=== PATIENT | female | born 1950 | race Caucasian/White ===

== ENCOUNTER 2017-10-26 10:45 | Observation (INO) ==
--- NOTE | 2017-10-26 11:05 | Emergency Department Note ---
Disposition Clinical Impression: Chest pain Qualifiers: Chest pain type: unspecified Qualified Code(s): R07.9 - Chest pain, unspecified Dyspnea Qualifiers: Dyspnea type: unspecified Qualified Code(s): R06.00 - Dyspnea, unspecified Disposition: Admitted As Inpatient Condition: Good Referrals: Adrienne Barnes SCALEHOUSE ATTENDANT [Primary Care Provider] - Forms: ED Satisfaction Letter Time of Disposition: 13:57 SOB HPI - General Chief Complaint: ED Shortness of Breath/Dyspnea Stated Complaint: LIVE Time Seen by Provider: 10/26/17 10:57 Source: patient, family Limitations: no limitations Nursing Notes Reviewed: Yes Vital Signs Reviewed: Yes - History of Present Illness Patient notes exertional dyspnea over the past 1 month. She states she cannot perform even basic ADLs without becoming dyspneic and having heavy substernal chest discomfort. The pain in her chest lasts approximately 15 minutes with spontaneous resolution with resting. She denies cough. She was referred by her primary care provider to see a customs collector who scheduled her for an echocardiogram and non-exercise stress test 3 days from now Pt Subjective Complaint: shortness of breath Onset (ago): week(s) Context: occurred during exertion Severity: severe Consistency/Duration: gradually worsening Improves with: rest Worsens with: exertion Associated symptoms: Reports: chest pain Treatment prior to arrival: none Cough present: No - Related Data Home oxygen amount: none Allergies Allergy/AdvReac Type Severity Reaction Status Date / Time Penicillins [PCN] Allergy See Verified 10/26/17 10:55 Comments All systems ED: reviewed and negative except as stated. Constitutional: Reports: as per HPI Eyes: Reports: as per HPI ENT ED: Reports: as per HPI Cardiovascular: Reports: chest pain Respiratory: Reports: dyspnea Gastrointestinal: Reports: as per HPI Genitourinary: Reports: as per HPI Musculoskeletal: Reports: as per HPI Integumentary: Reports: as per HPI Neurological: Reports: other (Feels dizzy, lightheaded) Psychiatric: Reports: anxiety Endocrine: Reports: as per HPI Hematological/Lymphatic: Reports: as per HPI Allergic/Immunologic: Reports: as per HPI Past Medical History - Past Medical History Source: patient Medical history: Reports: GERD, hyperlipidemia, other (Hypothyroidism) Psychiatric history: Reports: no psych history COMPLIANCE AUDITOR history: Reports: non-contributory - Social History Smoking Status: Never smoker Smokeless Tobacco Status: No Alcohol use: Reports: none Drug use: Reports: none Physical Exam Poor historian - General Limitations: no limitations General appearance: alert, in no apparent distress, anxious - Head Head exam: atraumatic - Eye Eye exam: Present: normal appearance - ENT ENT exam: normal exam - Neck Neck exam: Present: normal inspection, full ROM - Chest Chest inspection: Present: normal inspection, symmetric chest wall rise - Respiratory Respiratory exam: Present: normal lung sounds bilaterally, other (Tachypneic without accessory muscle use) - Cardiovascular Cardiovascular exam: Present: regular rate, normal heart sounds - Extremities Exam Extremities exam: Present: pedal edema - Neurological Exam Neurological exam: Present: alert, oriented X3, CN II-XII intact - Psychiatric Psychiatric exam: Present: anxious - Skin Skin exam: Present: warm, dry, intact Course Course Narrative: Patient presents with exertional dyspnea and chest discomfort over the past 1 month. She has seen cardiology and has been referred for outpatient studies. Workup today will include a chest x-ray, EKG, labs. She will be reassessed - Reevaluation(s) Reevaluation #1: D-dimer elevated. CT chest ordered Reevaluation #2: Patient has not reported any cough. I do not think her symptoms are due to pneumonia. We will request admission to the medicine service for further evaluation and management Vital Signs Temperature 97.9 F 10/26/17 10:49 Pulse Rate 102 10/26/17 10:49 Respiratory Rate 24 10/26/17 10:49 Blood Pressure 138/99 10/26/17 10:49 O2 Sat by Pulse Oximetry 98 10/26/17 10:49 Temperature 97.9 F 10/26/17 10:49 Pulse Rate 102 10/26/17 10:49 Respiratory Rate 24 10/26/17 10:49 Blood Pressure 138/99 10/26/17 10:49 O2 Sat by Pulse Oximetry 98 10/26/17 10:49 Oxygen Delivery Oxygen Delivery Room Air Shortness of Breath/Dyspnea - Lab Data Lab results reviewed: Yes I reviewed the patient's lab results. Result diagrams: 10/26/17 11:31 10/26/17 11:31 Lab Results 10/26/17 10/26/17 10/26/17 Range/Units 11:31 11:31 11:31 WBC 12.0 H (4.3-11.1) K/mcL RBC 4.94 (3.82-4.97) M/mcL Hgb 14.8 (11.5-15.4) g/dL Hct 45.4 H (35.3-44.9) % MCV 91.9 (83.0-100.0) fL MCH 30.0 (28.0-33.3) pg MCHC 32.6 (31.6-35.5) g/dL RDW 12.8 (11.5-14.5) % Plt Count 383 (140-400) K/mcL MPV 10.9 (9.4-12.4) fL Immature Gran % 0.3 (0-4) % Seg Neutrophils % 71.2 % Lymphocytes % 20.8 % Monocytes % 6.6 % Eosinophils % 0.3 % Basophils % 0.8 % Neutrophils # 8.5 (1.6-8.9) K/mcL Lymphocytes # 2.5 (0.6-4.6) K/mcL Monocytes # 0.8 (0.0-1.3) K/mcL Eosinophils # 0.0 (0.0-0.6) K/mcL Basophils # 0.1 (0.0-0.2) K/mcL PT 11.3 (9.4-12.1) Seconds INR 1.1 APTT 31.4 (26.0-36.0) Seconds D-Dimer 767 H (0-500) ng/mLFEU Sodium 139 (136-145) mEq/L Potassium 3.8 (3.5-5.1) mEq/L Chloride 106 (98-107) mEq/L Carbon Dioxide 24 (23-29) mEq/L BUN 12 (8-23) mg/dL Creatinine 0.80 (0.60-1.20) mg/dL Est GFR ( Amer) > 60 (> 60) Est GFR (Non-Af Amer) > 60 (> 60) BUN/Creatinine Ratio 15 (6-26) Glucose 103 (70-105) mg/dL Calculated Osmolality 288 (280-300) Calcium 9.5 (8.6-10.3) mg/dL Total Bilirubin 0.5 (0.3-1.0) mg/dL Direct Bilirubin 0.1 (0.0-0.2) mg/dL Indirect Bilirubin 0.4 (0.0-1.2) mg/dL AST 17 (13-39) Units/L ALT 16 (7-52) Units/L Alkaline Phosphatase 102 (34-104) Units/L Troponin I < 0.03 (< 0.04) ng/mL B-Natriuretic Peptide (Less than 100) pg/mL Serum Total Protein 7.6 (6.4-8.9) g/dL Albumin 4.2 (3.5-5.7) g/dL Globulin 3.4 (2.4-3.5) g/dL Albumin/Globulin Ratio 1.2 (1.1-2.2) 10/26/17 Range/Units 11:31 WBC (4.3-11.1) K/mcL RBC (3.82-4.97) M/mcL Hgb (11.5-15.4) g/dL Hct (35.3-44.9) % MCV (83.0-100.0) fL MCH (28.0-33.3) pg MCHC (31.6-35.5) g/dL RDW (11.5-14.5) % Plt Count (140-400) K/mcL MPV (9.4-12.4) fL Immature Gran % (0-4) % Seg Neutrophils % % Lymphocytes % % Monocytes % % Eosinophils % % Basophils % % Neutrophils # (1.6-8.9) K/mcL Lymphocytes # (0.6-4.6) K/mcL Monocytes # (0.0-1.3) K/mcL Eosinophils # (0.0-0.6) K/mcL Basophils # (0.0-0.2) K/mcL PT (9.4-12.1) Seconds INR APTT (26.0-36.0) Seconds D-Dimer (0-500) ng/mLFEU Sodium (136-145) mEq/L Potassium (3.5-5.1) mEq/L Chloride (98-107) mEq/L Carbon Dioxide (23-29) mEq/L BUN (8-23) mg/dL Creatinine (0.60-1.20) mg/dL Est GFR ( Amer) (> 60) Est GFR (Non-Af Amer) (> 60) BUN/Creatinine Ratio (6-26) Glucose (70-105) mg/dL Calculated Osmolality (280-300) Calcium (8.6-10.3) mg/dL Total Bilirubin (0.3-1.0) mg/dL Direct Bilirubin (0.0-0.2) mg/dL Indirect Bilirubin (0.0-1.2) mg/dL AST (13-39) Units/L ALT (7-52) Units/L Alkaline Phosphatase (34-104) Units/L Troponin I (< 0.04) ng/mL B-Natriuretic Peptide 44 (Less than 100) pg/mL Serum Total Protein (6.4-8.9) g/dL Albumin (3.5-5.7) g/dL Globulin (2.4-3.5) g/dL Albumin/Globulin Ratio (1.1-2.2) - Radiology Data Radiology results reviewed: Yes I reviewed the patient's radiology results. - EKG Data EKG attestation: Yes I reviewed and interpreted this EKG. EKG results narrative: Normal sinus rhythm rate 95 BPM OH 181 QRS 83 QT/QTC 339/392
[2017-10-26 11:42] LABS: Basophils # 0.1 K/mcL (0.0-0.2); Basophils % 0.8 %; Eosinophils % 0.3 %; Hematocrit 45.4 % (35.3-44.9); Hemoglobin 14.8 g/dL (11.5-15.4); Immature Granulocytes % 0.3 % (0-4); Lymphocytes # 2.5 K/mcL (0.6-4.6); Lymphocytes % 20.8 %; Mean Corpuscular HGB Conc 32.6 g/dL (31.6-35.5); Mean Corpuscular Volume 91.9 fL (83.0-100.0); Mean Platelet Volume 10.9 fL (9.4-12.4); Monocytes # 0.8 K/mcL (0.0-1.3); Monocytes % 6.6 %; Neutrophils # 8.5 K/mcL (1.6-8.9); Platelet Count 383 K/mcL (140-400); Red Blood Count 4.94 M/mcL (3.82-4.97); Red Cell Distribution Width 12.8 % (11.5-14.5); Segmented Neutrophils % 71.2 %
[2017-10-26 11:49] LABS: INR 1.1; Prothrombin Time 11.3 Seconds (9.4-12.1)
[2017-10-26 11:52] LABS: Activated Partial Thrombo Time 31.4 Seconds (26.0-36.0)
[2017-10-26 12:08] LABS: Alanine Aminotransferase 16 Units/L (7-52); Albumin 4.2 g/dL (3.5-5.7); Albumin/Globulin Ratio 1.2 (1.1-2.2); Alkaline Phosphatase 102 Units/L (34-104); Aspartate Amino Transferase 17 Units/L (13-39); BUN/Creatinine Ratio 15 (6-26); Bilirubin,Direct 0.1 mg/dL (0.0-0.2); Bilirubin,Indirect 0.4 mg/dL (0.0-1.2); Bilirubin,Total 0.5 mg/dL (0.3-1.0); Blood Urea Nitrogen 12 mg/dL (8-23); Calcium 9.5 mg/dL (8.6-10.3); Carbon Dioxide 24 mEq/L (23-29); Chloride 106 mEq/L (98-107); Globulin 3.4 g/dL (2.4-3.5); Glucose 103 mg/dL (70-105); Osmolality,Calculated 288 (280-300); Potassium 3.8 mEq/L (3.5-5.1); Sodium 139 mEq/L (136-145); Total Protein 7.6 g/dL (6.4-8.9); Troponin I < 0.03 ng/mL (< 0.04); eGFR For African Americans > 60 (> 60); eGFR For Non-African Americans > 60 (> 60)
[2017-10-26] MEDS ORDERED: Naloxone 0.4 MG/ML INJ IVP PRN (14:39)
--- NOTE | 2017-10-26 14:44 | Internal Med History&Physical ---
<Johan Myers - Last Filed: 10/26/17 14:59> Date of Encounter: 10/26/17 Time of Encounter: 14:42 Assessment and Plan (1) Chest pain Current visit: Yes Status: Acute ASSESSMENT: - Chest pain, etiology unclear. No prior cardiac history, but d/t 1 month H/O dyspnea has been following with a dba manager. She was initially scheduled to have a TTE, and a pharmacological stress this Wednesday. She is reporting midsternal chest discomfort/pain and dyspnea with exertion. She is unable to classify or describe the type or intensity of chest pain/discomfort. She reports that she currently has no active chest pain/discomfort at this time. She remains hemodynamically stable CAD Risk factors include Obesity, HDL, Sedentary lifestyle PLAN: - cardiac enzymes x 2 q 6 hr - EKG shows NSR rate of [address] elevations or depression - ASA 81 mg now - CBCD, BMP in AM - Fasting lipids - Heparin 5000 U SQ BID - 2D Echo - Pharmacological stress test in the am Qualifiers: Chest pain type: unspecified Qualified Code(s): R07.9 - Chest pain, unspecified (2) Dyspnea Current visit: Yes Status: Acute New dyspnea x1 month. Etiology unclear. CT show a possible PNA but it appears to be more atelectasis than PNA. She is denying any systemic s/sx including cough, fevers, chills, or aches. She is not requiring O2 for respiratory support and is in no respiratory distress with rest. -Respiratory support per NC; titrate to maintain Spo2 >92% -Continuous tele, and Spo2 monitoring Qualifiers: Dyspnea type: unspecified Qualified Code(s): R06.00 - Dyspnea, unspecified (3) HLD (hyperlipidemia) Current visit: Yes Status: Acute Continue Crestor Qualifiers: Hyperlipidemia type: unspecified Qualified Code(s): E78.5 - Hyperlipidemia , unspecified (4) DVT prophylaxis Current visit: Yes Status: Acute Heparin 5000 units SC BID Internal Medicine - H&P: HPI Chief complaint: dyspnea, exertional chest pain Admitted From: Home Plans for Post Hospital Care: Home History of present illness: Ms. Das is a 67 year old female with a PMH of obesity, GERD and hyperlipidemia. She presents to [facility] today with a one-month history of dyspnea and chest pain/discomfort exacerbated by exertion. She reports that she is unable to perform even basic ADLs due to dyspnea and chest heaviness. She describes the chest pain/discomfort as substernal however, she is unable to classify her describe the intensity or type of pain. She reports that the pain lasts approximately 15 minutes and spontaneously resolves with rest. She denies any systemic symptoms such as cough, fever, chills or generalized aches/ pains. She has been following with cardiology due to continued dyspnea. Past Med Surg Social Fam HX - Past Medical History Medical history: GERD, hyperlipidemia, other (Hypothyroidism) Psychiatric history: no psych history - Social History Smoking Status: Never smoker Smokeless Tobacco Status: No Alcohol use: none Drug use: none - Additional Family History Additional family history: Noncontributory Internal Medicine - H&P: Meds Clopidogrel [Plavix] 75 mg PO DAILY 10/26/17 [History] Levothyroxine Sodium [Levoxyl] 88 mcg PO DAILY 10/26/17 [History] Omeprazole [PriLOSEC] 20 mg PO BIDAC 10/26/17 [History] Rosuvastatin Calcium [Crestor] 5 mg PO DAILY 10/26/17 [History] 3 Allergy/AdvReac Type Severity Reaction Status Date / Time Penicillins [PCN] Allergy See Verified 10/26/17 10:55 Comments All Systems PM: A 10-system review of systems was performed and is negative for pertinent findings except as documented above in the HPI. Review of systems: REVIEW OF SYSTEMS GENERAL: Negative for any nausea, vomiting, fevers, chills, or weight loss. NEUROLOGIC: Negative for any blurry vision, blind spots, double vision, facial asymmetry, dysphagia, dysarthria, hemiparesis, hemisensory deficits, vertigo, ataxia. HEENT: Negative for any head trauma, neck trauma, neck stiffness, photophobia, phonophobia, sinusitis, rhinitis. CARDIAC: Negative for any, paroxysmal nocturnal dyspnea, peripheral edema. Positive for chest pain with exertion and dyspnea on exertion PULMONARY: Negative for any wheezing, COPD, or TB exposure. Positive for dyspnea on exertion GASTROINTESTINAL: Negative for any abdominal pain, nausea, vomiting, bright red blood per rectum, melena. GENITOURINARY: Negative for any dysuria, hematuria, incontinence. INTEGUMENTARY: Negative for any rashes, cuts, insect bites. RHEUMATOLOGIC: Negative for any joint pains, photosensitive rashes, history of vasculitis or kidney problems. HEMATOLOGIC: Negative for any abnormal bruising, frequent infections or bleeding. - Constitutional Vitals: Temp Pulse Resp BP Pulse Ox 97.9 F 102 24 138/99 98 10/26/17 10:49 10/26/17 10:49 10/26/17 10:49 10/26/17 10:49 10/26/17 10:49 General appearance: Present: cooperative, A&O X 3, no acute distress, answers questions appropriately - Head Head exam: Present: atraumatic, normocephalic - Eye Pupils: Present: PERRL - Neck Neck exam general surgery: Present: supple, trachea midline. Absent: lymphadenopathy - Respiratory Respiratory exam: Present: decreased breath sounds, CTAB. Absent: accessory muscle use, rales, rhonchi, wheezes - Cardiovascular Cardiovascular exam: Present: RRR, +S1, +S2. Absent: diastolic murmur, gallop, rubs, systolic murmur - GI/Abdominal GI/Abdominal exam: Present: normal bowel sounds, soft, no peritoneal signs. Absent: distended, tenderness - Extremities Exam Extremities exam: Present: warm, radial pulses palpable and symmetrical. Absent : calf tenderness, cyanotic, pedal edema - Neurological Exam Neurological exam: Present: oriented X3. Absent: facial droop, speech deficit - Skin Skin exam: Present: dry, intact Internal Med - H&P Results - Labs CBC & Chem 7: 10/26/17 11:31 10/26/17 11:31 - EKG Data -: EKG Interpreted by Myself EKG shows normal: sinus rhythm - EKG Data Prior EKG available for review: no Interpretation IM: normal EKG EKG comments: Normal sinus rhythm with a rate of 91. No ST elevation or depression 10/26/17 14:44 - Impressions Impressions Chest X-Ray 10/26/17 11:02 IMPRESSION: No active cardiopulmonary disease D/ / Job Damon MD / Job Damon MD Interpreting Provider: Job Damon MD Chest CTA 10/26/17 12:17 IMPRESSION: 1. No evidence of pulmonary embolism 2. Small focus of airspace disease in the left lower lobe may represent a focus of pneumonia 3. Moderate hiatal hernia D/ / Job Damon MD / Job Damon MD Interpreting Provider: Job Damon MD <Nguyễn Menezes - Last Filed: 10/26/17 15:51> Date of Encounter: 10/26/17 Internal Medicine - H&P: HPI History of present illness: Ms. Das is a 67 year old female All Systems PM: A 10-system review of systems was performed and is negative for pertinent findings except as documented above in the HPI. - Constitutional Vitals: Temp Pulse Resp BP Pulse Ox 97.9 F 102 18 162/82 98 10/26/17 10:49 10/26/17 10:49 10/26/17 14:53 10/26/17 14:53 10/26/17 10:49 Internal Med - H&P Results - Labs CBC & Chem 7: 10/26/17 11:31 10/26/17 11:31 - Attending Attestation I have personally performed a face to face evaluation on this patient. I have reviewed and agree with the care plan by HYDRAULIC ENGINEER Johan Myers. History and Exam by me shows: Ms. Das is a 67 year old female with a PMH of obesity, GERD and hyperlipidemia. She presents to [facility] today with a one-month history of dyspnea and chest pain/discomfort exacerbated by exertion. Pt denied any cold / cough. No fever / chills. Gen: A, A, O x 3 Chest : Diminished BS b/l Heart : S1 S2 + RRR No murmurs Abd: Soft, NT A/p 1. Acute CP She does have typical stable angina / CP with exertion So far negative work up check serial trop Stress test in AM 2 D Echo in AM
[2017-10-26] MEDS: Aspirin 81 MG TAB.CHEW PO SCH (15:55)
[2017-10-26] MEDS: *HR* Heparin 5,000 UNIT/ML VIAL SQ SCH (18:15)
[2017-10-27 05:01] LABS: BUN/Creatinine Ratio 20 (6-26); Blood Urea Nitrogen 17 mg/dL (8-23); Calcium 9.1 mg/dL (8.6-10.3); Carbon Dioxide 18 mEq/L (23-29); Chloride 108 mEq/L (98-107); Glucose 95 mg/dL (70-105); Osmolality,Calculated 289 (280-300); Potassium 4.4 mEq/L (3.5-5.1); Sodium 139 mEq/L (136-145); eGFR For African Americans > 60 (> 60); eGFR For Non-African Americans > 60 (> 60)
[2017-10-27] MEDS: *HR* Heparin 5,000 UNIT/ML VIAL SQ SCH ×2 (05:49→17:55)
[2017-10-27] MEDS ORDERED: Regadenoson 0.4 MG/5 ML SYRINGE IVP ONE (06:04)
[2017-10-27 06:35] LABS: Hematocrit 41.6 % (35.3-44.9); Hemoglobin 13.8 g/dL (11.5-15.4); Mean Corpuscular HGB Conc 33.2 g/dL (31.6-35.5); Mean Platelet Volume 11.2 fL (9.4-12.4); Platelet Count 341 K/mcL (140-400); Red Cell Distribution Width 13.2 % (11.5-14.5)
[2017-10-27 06:55] LABS: Mean Corpuscular Volume 90.4 fL (83.0-100.0)
[2017-10-27] MEDS: Aspirin 81 MG TAB.CHEW PO SCH (09:20)
--- NOTE | 2017-10-27 15:49 | Internal Med Progress Note ---
Date of Encounter: 10/27/17 Time of Encounter: 14:00 - Assessment and plan (1) Chest pain Current Visit: Yes Status: Acute Assessment and plan: presented with CP and SOB that is worse with exertion. Chest CTA with evidence of atelectasis, no pulmonary embolism. Serial troponins negative, EKG without acute ST changes. TTE with EF 60%, mild diastolic dysfunction and no wall motion abnormalities. Stress test pending Qualifiers: Chest pain type: unspecified Qualified Code(s): R07.9 - Chest pain, unspecified (2) GERD (gastroesophageal reflux disease) Current Visit: Yes Status: Acute Assessment and plan: per hx. Cont PPI Qualifiers: Esophagitis presence: without esophagitis Qualified Code(s): K21.9 - Gastro -esophageal reflux disease without esophagitis (3) HLD (hyperlipidemia) Current Visit: Yes Status: Acute Assessment and plan: per hx. Cont statin Qualifiers: Hyperlipidemia type: unspecified Qualified Code(s): E78.5 - Hyperlipidemia , unspecified (4) Morbid obesity Current Visit: Yes Status: Acute Assessment and plan: BMI 45. Lifestyle modifications encouraged (5) DVT prophylaxis Current Visit: Yes Status: Acute Assessment and plan: heparin - Subjective Interval history: Seen and examined at bedside, patient is new to me. Information obtained from chart review and patient report. Says she feels better at time of my exam. No chest pain or shortness of breath. She reports chest pain or shortness of breath with exertion. Chest pain was reproducible on exam. - Constitutional Vitals: Temp Pulse Resp BP Pulse Ox 98.0 F 84 16 135/82 96 10/27/17 15:37 10/27/17 15:37 10/27/17 15:37 10/27/17 15:37 10/27/17 15:37 General appearance: Present: cooperative, A&O X 3, morbidly obese, no acute distress, answers questions appropriately - Head Head exam: Present: atraumatic, normocephalic - Eye Eye exam: Present: PERRL, conjuntiva pink, sclera anicteric Pupils: Present: PERRL - Neck Neck exam general surgery: Present: supple, trachea midline. Absent: lymphadenopathy - Respiratory Respiratory exam: Present: chest wall tenderness, CTAB. Absent: accessory muscle use, rales, rhonchi, wheezes - Cardiovascular Cardiovascular exam: Present: RRR, +S1, +S2. Absent: diastolic murmur, gallop, rubs, systolic murmur - GI/Abdominal GI/Abdominal exam: Present: normal bowel sounds, soft, no peritoneal signs. Absent: distended, tenderness - Extremities Exam Extremities exam: Present: warm, radial pulses palpable and symmetrical. Absent : calf tenderness, cyanotic, pedal edema - Neurological Exam Neurological exam: Present: CN II-XII intact, oriented X3, no focal deficits. Absent: pronater drift, facial droop, speech deficit - Skin Skin exam: Present: dry, intact Internal Medicine: Result - Labs CBC & Chem 7: 10/27/17 06:17 10/27/17 03:39 Labs: Short CBC 10/27/17 Range/Units 06:17 WBC 10.4 (4.3-11.1) K/mcL Hgb 13.8 (11.5-15.4) g/dL Hct 41.6 (35.3-44.9) % Plt Count 341 (140-400) K/mcL BMP 10/27/17 03:39 Sodium 139 Potassium 4.4 Chloride 108 H Carbon Dioxide 18 L BUN 17 Creatinine 0.85 Glucose 95 Calcium 9.1 Cardiac Enzymes 10/26/17 10/26/17 Range/Units 17:15 23:26 Troponin I < 0.03 < 0.03 (< 0.04) ng/mL - ABG Interpretation ABG results: PT/INR, D-dimer PT 11.3 Seconds (9.4-12.1) 10/26/17 11:31 D-Dimer 767 ng/mLFEU (0-500) H 10/26/17 11:31 - Impressions Impressions Echocardiogram 10/27/17 14:38 Impressions: LVEF 60-65%. Normal LV chamber size, wall thickness and function. Mild left ventricular diastolic dysfunction. Normal right ventricular structure and function. Mild pulmonary hypertension. No significant valvular dysfunction. Left Ventricular Wall Motion: Rest Echo Findings All wall segments showed normal motion. Findings: Study Quality * Technically adequate exam. ECG Findings * Normal sinus rhythm. Left Ventricle * LVEF 60-65%. * Normal LV chamber size, wall thickness and function. * Mild left ventricular diastolic dysfunction. Right Ventricle * Normal right ventricular structure and function. Left Atrium * Mildly dilated left atrium. Right Atrium * Normal right atrial size. Interatrial Septum * Interatrial septum not well evaluated. Aortic Valve * Aortic valve not well visualized. * No aortic regurgitation. * No aortic stenosis. Mitral Valve * Normal mitral valve structure and function. * No mitral stenosis. * Trace mitral regurgitation. Tricuspid Valve * Normal tricuspid valve structure and function. * Trace tricuspid regurgitation. * Mild pulmonary hypertension. Pulmonic Valve * Normal pulmonic valve structure and function. * No pulmonic regurgitation. Aorta * Normally sized aortic root. Pericardium * The pericardium appears normal. IVC * Normal IVC dimensions and inspiratory collapse. Pulmonary Artery * Normal visualized portions of the main pulmonary artery. Consult Discharge Plan - Plan Referrals: Adrienne Barnes, GEOGRAPHIC ANALYST [Primary Care Provider] -
--- NOTE | 2017-10-27 16:30 | Electrocardiograph Report ---
[place] [id number] Test Date: 2017-10-26 Pat Name: Jackie Das Department: 104 Room: 3B45 Gender: F Vehicle Sales Professional: SUNNY : 1950 Requested By: Haris Haley Order Number: [id number] Reading MD: Elliot Hood MD Measurements Intervals [place] Rate: 95 P: 17 [place]: 181 QRS: 12 QRSD: 83 T: 42 QT: 339 QTc: 392 Interpretive Statements SINUS RHYTHM Electronically Signed On 10-27-2017 16:28:38 EST by Elliot Hood MD
[2017-10-28] MEDS: *HR* Heparin 5,000 UNIT/ML VIAL SQ SCH ×2 (06:00→16:49)
[2017-10-28] MEDS: Aspirin 81 MG TAB.CHEW PO SCH (08:24)
--- NOTE | 2017-10-28 15:22 | Internal Med Progress Note ---
Date of Encounter: 10/28/17 Time of Encounter: 15:20 - Assessment and plan (1) Chest pain Current Visit: Yes Status: Acute Assessment and plan: presented with CP and SOB that is worse with exertion. Chest CTA with evidence of atelectasis, no pulmonary embolism. Serial troponins negative, EKG without acute ST changes. TTE with EF 60%, mild diastolic dysfunction and no wall motion abnormalities. Stress test with large size moderate to severe intensity reversible defect suggesting ischemia. NPO at midnight. Cardiology consult. Continue ASA, Plavix Qualifiers: Chest pain type: unspecified Qualified Code(s): R07.9 - Chest pain, unspecified (2) GERD (gastroesophageal reflux disease) Current Visit: Yes Status: Acute Assessment and plan: per hx. Cont PPI Qualifiers: Esophagitis presence: without esophagitis Qualified Code(s): K21.9 - Gastro -esophageal reflux disease without esophagitis (3) HLD (hyperlipidemia) Current Visit: Yes Status: Acute Assessment and plan: per hx. Cont statin Qualifiers: Hyperlipidemia type: unspecified Qualified Code(s): E78.5 - Hyperlipidemia , unspecified (4) Morbid obesity Current Visit: Yes Status: Acute Assessment and plan: BMI 45. Lifestyle modifications encouraged (5) DVT prophylaxis Current Visit: Yes Status: Acute Assessment and plan: heparin - Subjective Interval history: Seen and examined at bedside; says she feels better would like to discharge home today. I advised her of positive stress test and need to stay overnight for cardiac evaluation. She is tearful on exam but agreeable. Denies chest pain or shortness of breath. - Constitutional Vitals: Temp Pulse Resp BP Pulse Ox 98.1 F 83 15 131/83 96 10/28/17 14:59 10/28/17 14:59 10/28/17 14:59 10/28/17 14:59 10/28/17 14:59 General appearance: Present: cooperative, A&O X 3, morbidly obese, no acute distress, answers questions appropriately - Head Head exam: Present: atraumatic, normocephalic - Eye Eye exam: Present: PERRL, conjuntiva pink, sclera anicteric Pupils: Present: PERRL - Neck Neck exam general surgery: Present: supple, trachea midline. Absent: lymphadenopathy - Respiratory Respiratory exam: Present: CTAB. Absent: accessory muscle use, rales, rhonchi, wheezes - Cardiovascular Cardiovascular exam: Present: RRR, +S1, +S2. Absent: diastolic murmur, gallop, rubs, systolic murmur - GI/Abdominal GI/Abdominal exam: Present: normal bowel sounds, soft, no peritoneal signs. Absent: distended, tenderness - Extremities Exam Extremities exam: Present: warm, radial pulses palpable and symmetrical. Absent : calf tenderness, cyanotic, pedal edema - Neurological Exam Neurological exam: Present: CN II-XII intact, oriented X3, no focal deficits. Absent: pronater drift, facial droop, speech deficit - Skin Skin exam: Present: dry, intact Internal Medicine: Result - Labs CBC & Chem 7: 10/27/17 06:17 10/27/17 03:39 - ABG Interpretation ABG results: PT/INR, D-dimer PT 11.3 Seconds (9.4-12.1) 10/26/17 11:31 D-Dimer 767 ng/mLFEU (0-500) H 10/26/17 11:31 Consult Discharge Plan - Plan Referrals: Adrienne Barnes, COACH WIRER [Primary Care Provider] -
[2017-10-28] MEDS ORDERED: Melatonin 3 MG TABLET PO PRN (16:05)
[2017-10-28] MEDS ORDERED: *HR* LORazepam 2 MG/ML VIAL IVP ONE (20:53)
[2017-10-29 05:26] LABS: Hematocrit 42.7 % (35.3-44.9); Hemoglobin 13.9 g/dL (11.5-15.4); Mean Corpuscular HGB Conc 32.6 g/dL (31.6-35.5); Mean Corpuscular Hemoglobin 30.3 pg (28.0-33.3); Mean Platelet Volume 11.4 fL (9.4-12.4); Platelet Count 327 K/mcL (140-400); Red Blood Count 4.59 M/mcL (3.82-4.97); Red Cell Distribution Width 13.1 % (11.5-14.5)
[2017-10-29 05:29] LABS: BUN/Creatinine Ratio 18 (6-26); Blood Urea Nitrogen 15 mg/dL (8-23); Calcium 9.3 mg/dL (8.6-10.3); Carbon Dioxide 27 mEq/L (23-29); Chloride 103 mEq/L (98-107); Chol/HDL Ratio 3.4 (0-4.9); Cholesterol 166 mg/dL (< 200); Glucose 102 mg/dL (70-105); HDL Cholesterol 49 mg/dL (40-59); LDL Cholesterol,Calculated 84 mg/dL (0-99); Osmolality,Calculated 289 (280-300); Potassium 4.3 mEq/L (3.5-5.1); Sodium 139 mEq/L (136-145); Triglycerides 164 mg/dL (< 150); eGFR For African Americans > 60 (> 60); eGFR For Non-African Americans > 60 (> 60)
[2017-10-29] MEDS: *HR* Heparin 5,000 UNIT/ML VIAL SQ SCH ×2 (05:52→17:20)
[2017-10-29] MEDS: Aspirin 81 MG TAB.CHEW PO SCH (08:08)
[2017-10-29 09:34] LABS: Hemoglobin A1C 5.8 %
[2017-10-29] MEDS ORDERED: Ondansetron 4 MG/2 ML VIAL IVP PRN (11:58)
--- NOTE | 2017-10-29 12:03 | Cardiology Consult Note ---
<Billie Santos - Last Filed: 10/29/17 12:30> Date of Encounter: 10/29/17 Time of Encounter: 11:00 Assessment and Plan (1) Chest pain Current Visit: Yes Status: Acute Symptoms concerning for unstable angina. Troponin negative x3. No ischemic ECG changes. Underwent 2 day stress test which demonstrated large sized, moderate to severe intensity, majority reversible perfusion defect involving the mid anterolateral , inferolateal, inferior, all apical, and apex segments suggests the presence of ischemia as well. TTE demonstrated preserved LVEF with normal wall motion. Risk factors for CAD include: HTN, HLD, obesity. Given symptoms and abnormal stress test, recommend LHC with possible PCI. Alternatives, risks, and benefits discussed. She is agreeable to proceed. Continue asa, statin, and plavix. Will start betablocker. Further recommendations to follow. Plan for LHC today, keep NPO except meds. Qualifiers: Chest pain type: chest pain due to myocardial ischemia Ischemic chest pain type: unstable angina pectoris Qualified Code(s): I20.0 - Unstable angina (2) Abnormal stress test Current Visit: Yes Status: Chronic Plan as above. Discussion w patient/family: The assessment and plan as outlined above was discussed with the patient and/or family members who expressed understanding and agreement. All questions were answered. Thank you for involving us in the care of your patient. Please call with any questions. The patient will be discussed and reviewed with Dr. Charles Mahmood; changes to be made accordingly. History of Present Illness Consult date: 10/29/17 Requesting physician: Yola Garcia Consult reason: abnormal stress Chief complaint: Chest pain History of present illness: Ms. Das is a 67 year old female with PMHx significant of HTN, HLD, GERD who presented to the ED with progressively worsening chest discomfort. Pain is described as midsternal chest burning with associated arm discomfort. Symptoms worsen with exertion or any activity and improve with rest. No prior CV testing noted. Cardiology consulted today for abnormal stress test. Past Med Surg Social Fam HX - Past Medical History Attestation: Yes The following information was validated with the patient. Source: patient Medical history: GERD, hyperlipidemia, thyroid disease, other Psychiatric history: no psych history - Past Surgical History Surgical History: no surgical history - Social History Smoking Status: Never smoker Smokeless Tobacco Status: No Alcohol use: none Drug use: none - Family History Mother Living Status: Hx Family Endocrine Disorder: Yes (DM) Father Living Status: Hx Family Cancer: Yes (Brain CA) Medications and Allergies Clopidogrel [Plavix] 75 mg PO DAILY 10/26/17 [History] Levothyroxine Sodium [Levoxyl] 88 mcg PO DAILY 10/26/17 [History] Omeprazole [PriLOSEC] 20 mg PO BIDAC 10/26/17 [History] Rosuvastatin Calcium [Crestor] 5 mg PO DAILY 10/26/17 [History] 3 Allergy/AdvReac Type Severity Reaction Status Date / Time Penicillins [PCN] Allergy See Verified 10/26/17 10:55 Comments All Systems Review: The remainder of the systems were reviewed and are negative - Cardiovascular Cardiovascular: as per HPI Physical Examination General: Conversant, No Apparent Distress HEENT: Atraumatic, Normocephaly, Mucus Membranes Moist Neck: No JVD, Normal carotid pulses Cardiac: Reg Rate and Rhythm, Normal S1 and S2, No Murmur Lungs: Normal Breath Sounds, No Wheeze, Rales, Rhonchi Neuro: Alert and responsive, No focal deficits noted Abdomen: Soft, Non-Tender Skin: No rashes noted on visualized skin Musculoskeletal: No Chest Wall Tenderness Extremities: No Clubbing, No Cyanosis, No Edema, Normal Pulses Results 10/29/17 04:40 10/29/17 04:40 Lab Results 10/29/17 10/29/17 04:40 04:40 WBC 10.6 Hgb 13.9 Hct 42.7 Plt Count 327 Sodium 139 Potassium 4.3 Chloride 103 Carbon Dioxide 27 BUN 15 Creatinine 0.85 Glucose 102 Calcium 9.3 Active Medications Aspirin (Aspirin) 81 mg PO DAILY [facility] Stop: 04/27/18 15:01 Last Admin: 10/29/17 08:08 Dose: 81 mg Atorvastatin Calcium (Lipitor) 10 mg PO DAILY [facility] Stop: 04/28/18 09:01 Last Admin: 10/29/17 08:08 Dose: 10 mg Calcium Carbonate (Tums) 1,000 mg PO TID [facility] PRN Reason: Protocol Stop: 04/29/18 21:01 Last Admin: 10/29/17 08:08 Dose: 1,000 mg Clopidogrel Bisulfate (Plavix) 75 mg PO DAILY [facility] Stop: 04/28/18 09:01 Last Admin: 10/29/17 08:08 Dose: 75 mg Heparin Sodium (Porcine) (Heparin) 5,000 unit SQ Q12HCO [facility] Stop: 04/27/18 18:01 Last Admin: 10/29/17 05:52 Dose: 5,000 unit Levothyroxine Sodium (Synthroid) 88 mcg PO DAILY [facility] Stop: 04/28/18 09:01 Last Admin: 10/29/17 08:08 Dose: 88 mcg Melatonin (Melatonin) 3 mg PO HS PRN PRN Reason: Insomnia Stop: 04/29/18 16:06 Naloxone HCl (Narcan) 0.4 mg IVP Q2MIN PRN PRN Reason: SEE COMMENTS Stop: 04/27/18 14:40 Omeprazole (Prilosec) 20 mg PO BIDAC [facility] PRN Reason: Protocol Stop: 04/27/18 16:31 Last Admin: 10/29/17 08:07 Dose: 20 mg Ondansetron HCl (Zofran) 4 mg IVP Q6HR PRN; Protocol PRN Reason: Nausea Stop: 04/30/18 12:01 - Imaging and Cardiology Echo: report reviewed Cardiac cath: report reviewed - EKG Interpretation EKG results cardiology: personally reviewed Consult Discharge Plan - Plan Referrals: Adrienne Barnes, VIRTUAL CUSTOMER ASSISTANT [Primary Care Provider] - <Charles Mahmood - Last Filed: 10/29/17 12:54> Date of Encounter: 10/29/17 - Attending Attestation I have personally performed a face to face evaluation on this patient. I have reviewed and agree with the care plan. History and Exam by me shows: Presented with chest pain, symptoms concerning for angina. Stress test consistent with anterior ischemia. Discussed left heart cath risks and benefits , she agrees to proceed. Assessment and Plan Discussion w patient/family: The assessment and plan as outlined above was discussed with the patient and/or family members who expressed understanding and agreement. All questions were answered. Thank you for involving us in the care of your patient. Please call with any questions. History of Present Illness History of present illness: Ms. Das is a 67 year old female All Systems Review: The remainder of the systems were reviewed and are negative Results 10/29/17 04:40 10/29/17 04:40 Lab Results 10/29/17 10/29/17 04:40 04:40 WBC 10.6 Hgb 13.9 Hct 42.7 Plt Count 327 Sodium 139 Potassium 4.3 Chloride 103 Carbon Dioxide 27 BUN 15 Creatinine 0.85 Glucose 102 Calcium 9.3
[2017-10-29] MEDS ORDERED: 0.9 % Sodium Chloride 1,000 ML ONE ×2 (14:14→14:41)
[2017-10-29] MEDS ORDERED: Heparin 1,000 UNITS/500 mL 500 ML ONE (14:14)
[2017-10-29] MEDS ORDERED: *HR* Heparin 10,000 UNIT/10 ML VIAL ONE (14:15)
[2017-10-29] MEDS ORDERED: ISOVUE-370 200 ML INFUS..BTL IV ONE ×2 (14:15→15:45)
[2017-10-29] MEDS ORDERED: Nitroglycerin 1,000 MCG/10 ML VIAL IV ONE (14:26)
[2017-10-29] MEDS ORDERED: *HR* Midazolam HCl 2 MG/2 ML VIAL ONE ×3 (14:42→15:34)
[2017-10-29] MEDS ORDERED: *HR* FentaNYL (PF) 100 MCG/2 ML VIAL ONE ×2 (14:43→15:31)
[2017-10-29] MEDS ORDERED: Verapamil 5 MG/2 ML VIAL ONE (14:43)
--- NOTE | 2017-10-29 15:06 | Pre-Sedation Evaluation ---
Pre-sedation evaluation - Pre-sedation checklist Date of procedure: 10/29/17 Procedure: [facility] [place] Recent Vitals: Last Vital Signs Temp 97.9 F 10/29/17 07:23 Pulse 78 10/29/17 07:23 Resp 16 10/29/17 07:23 BP 135/76 10/29/17 07:23 Pulse Ox 99 10/29/17 07:23 H&P (including ROS) documented in medical record: Yes Previous reaction to sedatives/anesthetics: No Dietary Status: NPO after Midnight Dentition: No loose teeth or bridges ASA Classification *see protocol: CLASS II-Mild systemic disease Plan of Care: Pt appropriate candidate for procedure/moderate/conscious sedation , Risks/benefits of procedure/sedation discussed w/ patient/family
[2017-10-29] MEDS ORDERED: Nitroglycerin Spray 4.9 GM BOTTLE ONE (15:27)
[2017-10-29] MEDS ORDERED: Tirofiban 12.5 MG/250ML 12.5 MG/250 ML BAG ONE (15:44)
--- NOTE | 2017-10-29 16:02 | Internal Med Progress Note ---
Date of Encounter: 10/29/17 Time of Encounter: 14:00 - Assessment and plan (1) Chest pain Current Visit: Yes Status: Acute Assessment and plan: presented with CP and SOB that is worse with exertion. Chest CTA with evidence of atelectasis, no pulmonary embolism. Serial troponins negative, EKG without acute ST changes. TTE with EF 60%, mild diastolic dysfunction and no wall motion abnormalities. Stress test with large size moderate to severe intensity reversible defect suggesting ischemia. [facility] planned 10/29/17. Cardiology following. Continue ASA, Plavix Qualifiers: Chest pain type: chest pain due to myocardial ischemia Ischemic chest pain type: unstable angina pectoris Qualified Code(s): I20.0 - Unstable angina (2) GERD (gastroesophageal reflux disease) Current Visit: Yes Status: Acute Assessment and plan: per hx. Cont PPI Qualifiers: Esophagitis presence: without esophagitis Qualified Code(s): K21.9 - Gastro -esophageal reflux disease without esophagitis (3) HLD (hyperlipidemia) Current Visit: Yes Status: Acute Assessment and plan: per hx. Cont statin Qualifiers: Hyperlipidemia type: unspecified Qualified Code(s): E78.5 - Hyperlipidemia , unspecified (4) Morbid obesity Current Visit: Yes Status: Acute Assessment and plan: BMI 45. Lifestyle modifications encouraged (5) DVT prophylaxis Current Visit: Yes Status: Acute Assessment and plan: heparin - Subjective Interval history: Seen and examined at bedside. Sitting up in chair at bedside. She is anxious and nervous regarding left heart catheterization. No chest pain or shortness of breath. [facility] planned later this afternoon. - Constitutional Vitals: Temp Pulse Resp BP Pulse Ox 97.9 F 78 16 135/76 99 10/29/17 07:23 10/29/17 07:23 10/29/17 07:23 10/29/17 07:23 10/29/17 07:23 General appearance: Present: cooperative, A&O X 3, morbidly obese, no acute distress, answers questions appropriately - Head Head exam: Present: atraumatic, normocephalic - Eye Eye exam: Present: PERRL, conjuntiva pink, sclera anicteric Pupils: Present: PERRL - Neck Neck exam general surgery: Present: supple, trachea midline. Absent: lymphadenopathy - Respiratory Respiratory exam: Present: CTAB. Absent: accessory muscle use, rales, rhonchi, wheezes - Cardiovascular Cardiovascular exam: Present: RRR, +S1, +S2. Absent: diastolic murmur, gallop, rubs, systolic murmur - GI/Abdominal GI/Abdominal exam: Present: normal bowel sounds, soft, no peritoneal signs. Absent: distended, tenderness - Extremities Exam Extremities exam: Present: warm, radial pulses palpable and symmetrical. Absent : calf tenderness, cyanotic, pedal edema - Neurological Exam Neurological exam: Present: CN II-XII intact, oriented X3, no focal deficits. Absent: pronater drift, facial droop, speech deficit - Skin Skin exam: Present: dry, intact Internal Medicine: Result - Labs CBC & Chem 7: 10/29/17 04:40 10/29/17 04:40 Labs: Short CBC 10/29/17 Range/Units 04:40 WBC 10.6 (4.3-11.1) K/mcL Hgb 13.9 (11.5-15.4) g/dL Hct 42.7 (35.3-44.9) % Plt Count 327 (140-400) K/mcL BMP 10/29/17 04:40 Sodium 139 Potassium 4.3 Chloride 103 Carbon Dioxide 27 BUN 15 Creatinine 0.85 Glucose 102 Calcium 9.3 - ABG Interpretation ABG results: PT/INR, D-dimer PT 11.3 Seconds (9.4-12.1) 10/26/17 11:31 D-Dimer 767 ng/mLFEU (0-500) H 10/26/17 11:31 Consult Discharge Plan - Plan Referrals: Adrienne Barnes, EMPLOYEE REPRESENTATIVE [Primary Care Provider] -
[2017-10-29] MEDS ORDERED: *HR* Morphine 2 MG/ML SYRINGE IVP PRN (17:03)
--- NOTE | 2017-10-29 19:53 | Invasive Diagnostic Lab Proc ---
Name: Jackie Das Date of Study: 10/29/2017 Date: 1950 Ht: 61.0in Medical Record#: [id number] Age: 67 Wt: 244.71lb Gender: Female BSA: 2.06 Order #: [id number] BMI: 46.2 Physicians Procedure Physician: Elliot Hood MD, FACC Referring MD: Adrienne Barnes CNP Referring MD: Staff Name Position Time In Joanne Martin RT (R) Scrub 02:39 PM [facility], Alessandra RT (R) Monitor 02:39 PM Idania Amezquita RN School Program Director 02:39 PM Shan Mejia RN School Program Director 02:40 PM Indications Indication Abnormal Test - Stress Procedures Performed Procedure L HRT ARTERY/VENTRICLE ANGIO PRQ CARD NAVDEEP STENT W/ANGIO 1 VSL Pre-Procedure Checklist Informed consent is complete signed and on chart. H&P is on chart. ID band is on and ID verified with patient. Patient NPO for procedure The procedure was described for the patient and questions were answered. Blood Pressure: 135/76 ECG is on chart. Rhythm: NSR Plan of Care Patient will tolerate the procedure without complications. Adequate level of comfort will be maintained. Hemodynamics will remain stable Patient will recover from procedure without complications. Respiratory function will be maintained. Cardiac rhythm will remain stable. Patient temperature will be maintained. Patient and/or family have verbalized understanding of the procedure. Patient Education Chief Complaint/Reason for Test: Cardiac Cath Developmental Category: Geriatric (65+ years) Developmentally Appropriate for Age: Yes Learning Barriers: None Education Needs: Procedure Education Method: Verbal Information Taught: Cardiac Cath Educational Evaluation: Able to repeat information Intravenous Access Time IV Size Location DC'd Fluid/Drip Rate Units RN 02:19 PM 22g 1" Patent On Arrival Lt Forearm 0.9NaCl 25 ml/hr Shan Mejia RN 02:57 PM Started with 20g 1 1/4" Lt Antecubital 0.9NaCl 25 ml/hr Gelacio Malik RN Allergies Penicillins Vital Signs Time BP (mmHg) HR (bpm) O2 Sat. RR (bpm) LOC 02:19 PM 135 / 76 78 99 % 15 5 = Fully awake and oriented or at pre-proc level 02:40 PM / % 5 = Fully awake and oriented or at pre-proc level 02:40 PM / % 5 = Fully awake and oriented or at pre-proc level 02:57 PM / % 4 = Oriented but drowsy 03:12 PM / % 4 = Oriented but drowsy 03:27 PM / % 4 = Oriented but drowsy 03:42 PM / % 4 = Oriented but drowsy 03:57 PM / % 4 = Oriented but drowsy 02:46 PM 94 / 48 88 93 % 26 03:00 PM 163 / 88 89 100 % 16 03:04 PM 147 / 87 82 99 % 22 03:09 PM 150 / 89 82 99 % 18 03:14 PM 166 / 88 88 98 % 34 03:19 PM 144 / 83 91 95 % 24 03:25 PM 164 / 79 86 97 % 23 03:29 PM 162 / 98 88 99 % 16 03:34 PM 149 / 96 95 96 % 16 03:39 PM 136 / 73 97 92 % 11 03:44 PM 121 / 68 103 94 % 21 03:49 PM 133 / 81 97 98 % 18 03:54 PM 147 / 82 94 99 % 36 03:59 PM 146 / 86 96 99 % 23 04:04 PM 143 / 81 109 100 % 31 04:09 PM 158 / 95 101 100 % 20 04:14 PM 158 / 91 95 100 % 17 04:19 PM 158 / 86 93 100 % 17 04:40 PM 150 / 96 91 97 % 18 5 = Fully awake and oriented or at pre-proc level 05:30 PM 145 / 81 89 93 % 16 5 = Fully awake and oriented or at pre-proc level 05:00 PM 143 / 75 85 100 % 16 5 = Fully awake and oriented or at pre-proc level 05:15 PM 146 / 80 88 98 % 16 5 = Fully awake and oriented or at pre-proc level 05:30 PM 145 / 81 87 98 % 17 5 = Fully awake and oriented or at pre-proc level 05:45 PM 145 / 80 93 99 % 17 5 = Fully awake and oriented or at pre-proc level 06:00 PM 147 / 83 94 99 % 18 5 = Fully awake and oriented or at pre-proc level 06:15 PM 153 / 88 94 100 % 16 5 = Fully awake and oriented or at pre-proc level 06:30 PM 159 / 88 92 99 % 17 5 = Fully awake and oriented or at pre-proc level 07:02 PM 154 / 82 88 97 % 20 5 = Fully awake and oriented or at pre-proc level Procedural Medications Time Medication Dose Units Method Given By 02:40 PM Oxygen 2 L/min nasal cannula Shan Mejia RN 02:58 PM Versed 2 mg Intravenous Shan Mejia RN 02:58 PM Fentanyl 50 mcg Intravenous Shan Mejia RN 03:10 PM Lidocaine 2% 0.5 ml Subcutaneous Elliot Hood MD, [facility] 03:12 PM Versed 2 mg Intravenous Shan Mejia RN 03:12 PM Fentanyl 25 mcg Intravenous Shan Mejia RN 03:13 PM Heparin 4000 units Nitroglycerin 200 mcg Verapamil 2.5 mg Intraarterial Elliot Hood MD, FAC 03:26 PM Nitroglycerin 400 mcg Sublingual Shan Mejia RN 03:29 PM Versed 1 mg Intravenous Shan Mejia RN 03:29 PM Fentanyl 25 mcg Intravenous Shan Mejia RN 03:33 PM Versed 1 mg Intravenous Shan Mejia RN 03:33 PM Fentanyl 25 mcg Intravenous Shan Mejia RN 03:35 PM Lidocaine 2% 10 ml Subcutaneous Elliot Hood MD, FAC 03:36 PM Oxygen 4 L/min nasal cannula Shan Mejia RN 03:49 PM Heparin 3000 units Intravenous Shan Mejia RN 04:03 PM Nitroglycerin 200 mcg Intracoronary Elliot Hood MD 03:57 PM Aggrastat Bolus: 54 ml Intravenous Shan Mejia RN 03:57 PM Aggrastat 12.5mg/250ml 19.5 ml Intravenous Shan Mejia RN 04:26 PM Plavix 300 mg Orally Shan Mejia RN 04:27 PM Versed 1 mg Intravenous Shan Mejia RN 04:27 PM Fentanyl 25 mcg Intravenous Shan Mejia RN ASA Classification: CLASS II- Mild systemic disease (i.e. well-controlled diabetes, hypertension, asthma, cigarette smoking) Surya Score Preprocedure Postprocedure Activity 2- Moves 4 extremities sustained head lift Activity 2- Moves 4 extremities sustained head lift Circulation 2- SBP +/= 20 points of pre-anesthetic level Circulation 2- SBP +/= 20 points of pre-anesthetic level Consciousness 2- Awake and alert oriented x 3 Consciousness 2- Awake and alert oriented x 3 O2 Saturation 2- Able to maintain O2 satruation of 92% on room air O2 Saturation 2- Able to maintain O2 satruation of 92% on room air Respiratory 2- Able to deep breathe and cough well Respiratory 2- Able to deep breathe and cough well Total Score 10 Total Score 10 Contrast Agent: Isovue Diagnostic Contrast: 233 ml Total Contrast: 233 ml Fluoro Dose: 1360 mGy Activated Clotting Time Time Seconds to Clot 03:48 PM 231 04:25 PM 368 05:35 PM 224 06:40 PM 216 Procedure Log Time Note Enter By 02:14 PM CathStat 02:37 PM Pt arrived to label tacker 2 at 14:37 [email or web address] 02:37 PM Patient charges- Angio tray pack, Navilyst 3mm J, Pulse Oximetry and ACIST tubing and transducer [email or web address] 02:37 PM Physician arrived 14:37 csmith 02:37 PM Meet and greet completed csmith 02:37 PM Sign in performed according to hospital policy. [email or web address] 02:37 PM Procedure start 14:37 csmith 02:39 PM Joanne Martin RT (R) Position: Scrub Time in: 14:39 tsites 02:39 PM Alessandra Oneill RT (R) Position: Monitor Time in: 14:39 tsites 02:39 PM Idania Amezquita RN Position: School Program Director Time in: 14:39 tsites 02:40 PM Shan Mejia RN Position: School Program Director Time in: 14:40 tsites 02:40 PM Time: 14:40 Oxygen on at 2 L/min per nasal cannula by Shan Mejia RN tsites 02:40 PM Time: 14:40 Patient comfortable and pain free: Yes tsites 02:40 PM Time: 14:40LOC: 5 = Fully awake and oriented or at pre-proc level tsites 02:40 PM Clinical Presentation: Unstable angina tsites 02:44 PM Hair removed from procedure site in holding area using clippers. Right wrist and right groin prepped with Chloraprep by Franck Thomas RT (R), then patient was draped. Skin intact. tsites 02:45 PM Case Start 02:45 PM Vitals capture started with the following parameters, Patient=Adult, Interval=5 min, Initial [place]=077 mmHg, Deflation Rate=5 mmHg, Cuff placed on Right Arm 02:46 PM HR=88 bpm, NIBP=94/48 mmhg, SpO2=93.0 %, Resp=26 B/min 02:46 PM Recorded ECG: HR=84 Condition=Condition 1 02:57 PM Time: 14:40LOC: 5 = Fully awake and oriented or at pre-proc level tsites 02:57 PM Time: 14:40 Patient comfortable and pain free: Yes tsites 02:57 PM 22g IV pulled out rt arm, was not working. tsites 02:58 PM Time: 14:58 Versed 2 mg Intravenous Given by Shan Mejia RN tsites 02:58 PM Time: 14:58 Fentanyl 50 mcg Intravenous Given by Shan Mejia RN tsites 02:58 PM Vitals capture started with the following parameters, Patient=Adult, Interval=5 min, Initial Erscbctk=103 mmHg, Deflation Rate=5 mmHg, Cuff placed on Right Arm 03:00 PM HR=89 bpm, NKEJ=434/88 mmhg, HsR9=551.0 %, Resp=16 B/min 03:04 PM HR=82 bpm, RTFE=239/87 mmhg, SpO2=99.0 %, Resp=22 B/min 03:09 PM HR=82 bpm, BPTI=230/89 mmhg, SpO2=99.0 %, Resp=18 B/min 03:09 PM Time out performed according to hospital policy tsites 03:10 PM Time: 15:10 0.5 ml Lidocaine 2% to right radial Subcutaneous Given by Elliot Hood MD, FACC tsites 03:12 PM Time: 14:57 Patient comfortable and pain free: Yes tsites 03:12 PM Time: 14:57LOC: 4 = Oriented but drowsy tsites 03:12 PM Time: 15:12 Versed 2 mg Intravenous Given by Shan Mejia RN tsites 03:12 PM Time: 15:12 Fentanyl 25 mcg Intravenous Given by Shan Mejia RN tsites 03:12 PM Pressure channel 1 zeroed. 03:13 PM Access obtained by percutaneous puncture. 6Fr 10cm Terumo Glidesheath sheath placed in right Radial artery. [id number] tsites 03:14 PM Time: 15:13 Patient given 4,000 units Heparin, 200 mcg Nitroglycerin, and 2.5 mg Verapamil Intraarterial by Elliot Hood MD, FACC. This is given to reduce risk of vessel spasm and thrombosis. tsites 03:14 PM HR=88 bpm, VQRA=733/88 mmhg, SpO2=98.0 %, Resp=34 B/min, Comment=sr 03:14 PM 0.035 260cm Navilyst 3mmJ wire [id number] tsites 03:15 PM 5Fr TIG catheter inserted over the wire DNC tsites 03:16 PM wire removed tsites 03:17 PM Recorded Pressure: Ao, HR=93, Condition=Condition 1 (Aorta) Ao 136/74/98 03:17 PM 0.035 150cm VSI Lan-Torque wire [id number] tsites 03:17 PM RCA angiography performed in multiple views. tsites 03:18 PM Coronary Dominance: Co-dominant tsites 03:18 PM Lesion found in Mid RCA. Pre Stenosis: 30 Pre FRANCIS Flow: 3: Complete and Brisk Flow/Perfusion tsites 03:19 PM Lesion found in Right PDA. Pre Stenosis: 40 Pre FRANCIS Flow: 3: Complete and Brisk Flow/Perfusion tsites 03:19 PM Recorded Pressure: Ao, HR=91, Condition=Condition 1 (Aorta) Ao 126/82/103 03:19 PM HR=91 bpm, BXRQ=284/83 mmhg, SpO2=95.0 %, Resp=24 B/min, Comment=sr 03:19 PM Catheter removed tsites 03:20 PM 5Fr jl3.5 catheter inserted over the wire [id number] tsites 03:22 PM Catheter removed tsites 03:23 PM 6Fr CLS 3.0 Runway guide catheter was used to cannulate the PCI vessel successfully. reused? No tsites 03:24 PM Pressure channel 1 zeroed. 03:25 PM Recorded Pressure: LV, HR=94, Condition=Condition 1 (Left Ventricle) LV 98/11/22 03:25 PM HR=86 bpm, IPWT=737/79 mmhg, SpO2=97.0 %, Resp=23 B/min 03:25 PM Recorded Pressure: LV, Ao, HR=85, Condition=Condition 1 (Left Ventricle) LV 158/24/33, (Aorta) Ao 148/84/113 03:26 PM Catheter selectively placed in left ventricle tsites 03:26 PM Bolus angiogram of left Ventricle complete: 8 ml/sec for a total of 24 mls tsites 03:27 PM Time: 15:26 Nitroglycerin 400 mcg Sublingual Given by Shan Mejia RN tsites 03:27 PM Time: 15:12LOC: 4 = Oriented but drowsy tsites 03:27 PM Time: 15:12 Patient comfortable and pain free: Yes tsites 03:28 PM Recorded Pressure: Ao, HR=90, Condition=Condition 1 (Aorta) Ao 174/93/130 03:29 PM Time: 15:29 Versed 1 mg Intravenous Given by Shan Mejia RN tsites 03:29 PM HR=88 bpm, IACN=491/98 mmhg, SpO2=99.0 %, Resp=16 B/min 03:29 PM Time: 15:29 Fentanyl 25 mcg Intravenous Given by Shan Mejia RN tsites 03:30 PM Guide catheter removed intact. tsites 03:33 PM Time: 15:33 Versed 1 mg Intravenous Given by Shan Mejia RN tsites 03:33 PM Time: 15:33 Fentanyl 25 mcg Intravenous Given by Shan Mejia RN tsites 03:34 PM HR=95 bpm, EONW=296/96 mmhg, SpO2=96.0 %, Resp=16 B/min 03:36 PM Time: 15:35 10 ml Lidocaine 2% to right groin Subcutaneous Given by Elliot Hood MD, [facility] tsites 03:36 PM Time: 15:36 Oxygen on at 4 L/min per nasal cannula by Shan Mejia RN tsites 03:37 PM Access obtained by percutaneous puncture. 5Fr 10cm Terumo Lenore sheath placed in right Femoral artery. [id number] tsites 03:37 PM jl3.5 reinserted tsites 03:39 PM HR=97 bpm, CTHX=361/73 mmhg, SpO2=92.0 %, Resp=11 B/min 03:40 PM catheter removed intact. tsites 03:40 PM 5Fr RBL 3.5 Convey guide catheter was used to cannulate the PCI vessel successfully. reused? No tsites 03:41 PM LCA angiography performed in multiple views. tsites 03:41 PM Recorded Pressure: Ao, HR=91, Condition=Condition 1 (Aorta) Ao 126/80/100 03:42 PM Time: 15:27 Patient comfortable and pain free: Yes tsites 03:42 PM Time: 15:27LOC: 4 = Oriented but drowsy tsites 03:44 PM Catheter removed tsites 03:44 PM Sheath exchanged for a 6 Fr 11 cm Cordis Halle sheath [id number] tsites 03:44 PM ZF=026 bpm, HPQZ=526/68 mmhg, SpO2=94 %, Resp=21 B/min 03:45 PM Lesion found in Proximal LAD. Pre Stenosis: 99 Pre FRANCIS Flow: 2: Partial Flow/Perfusion (> 1 but < 3) tsites 03:46 PM ACT drawn tsites 03:46 PM Proximal Left Anterior Descending Coronary Artery with 99% stenosis. If graft is supplying this territory, 0 % stenosis. tsites 03:46 PM pt will not lay still on the table. keeps moving legs tsites 03:47 PM Time: 15:47 Versed 1 mg Intravenous Given by Shan Mejia RN tsites 03:47 PM Time: 15:47 Fentanyl 25 mcg Intravenous Given by Shan Mejia RN tsites 03:48 PM cls3.0 reinserted tsites 03:48 PM At 15:48 the ACT was 231 seconds. tsites 03:49 PM Time: 15:49 Heparin 3000 units Intravenous Given by Shan Mejia RN tsites 03:49 PM HR=97 bpm, UOQI=409/81 mmhg, SpO2=98.0 %, Resp=18 B/min 03:54 PM HR=94 bpm, IXRY=021/82 mmhg, SpO2=99 %, Resp=36 B/min 03:55 PM Guide catheter removed intact. tsites 03:56 PM 6Fr RBL 3.5 Convey guide catheter was used to cannulate the PCI vessel successfully. reused? No tsites 03:57 PM Time: 15:57 Aggrastat Bolus: 54 ml Intravenous Given by Shan Mejia RN Marquez pump tsites 03:57 PM Time: 15:57 Aggrastat 12.5mg/250ml 19.5 ml Intravenous Given by Shan Mejia RN Marquez pump tsites 03:57 PM .[address] [place] 182cm guide wire across target lesion- successful. reused? No tsites 03:57 PM Time: 15:42 Patient comfortable and pain free: Yes tsites 03:57 PM Time: 15:42LOC: 4 = Oriented but drowsy tsites 03:59 PM HR=96 bpm, JZWF=273/86 mmhg, SpO2=99 %, Resp=23 B/min 04:02 PM 2.0 mm x 15 mm Emerge Monorail balloon across target lesion- successful. reused? No tsites 04:02 PM Balloon inflated @ 8 jp for 21 seconds tsites 04:03 PM Balloon inflated @ 10 jp for 19 seconds tsites 04:03 PM Time: 16:03 Nitroglycerin 200 mcg Intracoronary Given by Elliot Hood MD tsites 04:04 PM Balloon catheter removed intact. tsites 04:04 PM BW=984 bpm, LPPD=571/81 mmhg, AoL0=141 %, Resp=31 B/min 04:09 PM AB=859 bpm, UAGA=700/95 mmhg, JqJ5=613 %, Resp=20 B/min 04:09 PM 2.25mm x 28mm Synergy drug-eluting stent across target lesion- successful Lot #[id number] tsites 04:10 PM Stent deployed @ 11 jp for 24 seconds tsites 04:11 PM Stent delivery system removed intact. tsites 04:11 PM Recorded Pressure: Ao, WG=194, Condition=Condition 1 (Aorta) Ao 153/92/120 04:12 PM Time: 15:57LOC: 4 = Oriented but drowsy tsites 04:12 PM Time: 15:57 Patient comfortable and pain free: Yes tsites 04:13 PM 2.25 mm x 15mm NC Trek Rx balloon across target lesion- successful. reused? No tsites 04:14 PM HR=95 bpm, PKGR=802/91 mmhg, FvA4=200.0 %, Resp=17 B/min, Comment=sr 04:15 PM Balloon inflated @ 18 jp for 22 seconds tsites 04:16 PM Balloon inflated @ 16 jp for 16 seconds tsites 04:18 PM Guide catheter removed intact. tsites 04:19 PM Bolus angiogram of right Femoral complete: 2 ml/sec for a total of 4 mls tsites 04:19 PM act drawn tsites 04:19 PM Procedure completed at 16:19 tsites 04:19 PM HR=93 bpm, LQPI=135/86 mmhg, ZtV7=838.0 %, Resp=17 B/min 04:19 PM Did you address FRANCIS flow and Dominance? Yes tsites 04:21 PM Sign out completed: Radiation Dose 1360 mGy Fluoro Time: 17.7 Isovue 370 - 200ml contrast 233 ml given by Elliot Hood MD, [facility]. Complications: NoneCardiac Rehab Consult needed: YesConfirmed administered medications: Yes tsites 04:21 PM Isovue 370 - 200ml,2 Bottle(s) used. tsites 04:21 PM Arterial sheath pulled, Vasc Band closure device used and was Successful S/N. tsites 04:21 PM 10 ml air in Vasc Band. tsites 04:21 PM Sheath left in place to be pulled on floor/holding areaV+Pad rt groin tsites 04:22 PM Estimated Blood Loss: less than 20cc tsites 04:22 PM Post ECG NSR tsites 04:22 PM Post Blood Pressure 158/86 tsites 04:22 PM 16:22 Post Pulses Bilateral DP & PT 1+ tsites 04:22 PM Information taught Cardiac Cath, PCI, Vasc Band, and V+ Pad tsites 04:23 PM Education needs Procedure, Plan of Care, and Responsibilities of Patient in Care tsites 04:23 PM Learning barriers :None tsites 04:23 PM Education Methods Verbal tsites 04:23 PM Education evaluation Able to repeat information tsites 04:23 PM Site status No bleeding/hematoma - Rt Groin as reported by Joanne Martin RT (R) at 16:23 tsites 04:23 PM Site status No bleeding/hematoma - Rt Wrist as reported by Joanne Martin RT (R) at 16:23 tsites 04:23 PM Opsite applied tsites 04:24 PM Vitals capture stopped. 04:25 PM At 16:25 the ACT was 368 seconds. tsites 04:26 PM Time: 16:26 Plavix 300 mg Orally Given by Shan Mejia RN tsites 04:29 PM aggrastat dc'd tsites 04:29 PM Report given to lee DIOP Pt taken to Holding room Room #2. 16:29 tsites 04:29 PM Plavix, Effient or Brilinta given Yes tsites 04:29 PM Delay to floor Bed availability tsites 04:29 PM Patient out of room: 16:29 tsites 04:29 PM no family at this time tsites 05:35 PM At 17:35 the ACT was 224 seconds. tsites 06:40 PM At 18:40 the ACT was 216 seconds. tsites 06:51 PM vasc band removed opsite applied to right wrist tsites 07:10 PM Report given to connor DIOP Pt taken to 2N Room #11. 19:10 tsites 07:44 PM pt taken to 2n tsites Complications Complication None None Hemodynamics Pressures Site Systolic/A Wave Diastolic/V Wave Mean AO 136 74 98 AO 126 82 103 LV 98 11 22 LV 158 24 33 AO 148 84 113 AO 174 93 130 AO 126 80 100 AO 153 92 120 Post Procedure Information Blood Pressure: 158/86 mmHg Rhythm: NSR Post procedural instructions were given Closure Device Time Device Success/Fail 10/29/2017 4:30:00 PM Mechanical Compression Successful 10/29/2017 4:30:00 PM Manual Compression Site Checks Time Location Status Staff Sheath In? Note 04:23 PM Rt Groin No bleeding/hematoma Joanne Martin RT (R) 04:23 PM Rt Wrist No bleeding/hematoma Joanne Martin RT (R) 04:40 PM Rt Groin No bleeding/ No Hematoma Shahbaz Frausto RN Yes 04:40 PM Rt Wrist No bleeding/ No Hematoma Shahbaz Frausto RN Vasc band in place 05:30 PM Rt Wrist No bleeding/ No Hematoma Shahbaz Frausto RN Vasc band in place 05:00 PM Rt Groin and Rt wrist No bleeding/ No Hematoma Sites, Alessandra RT (R) 05:15 PM Rt Groin and rt wrist No bleeding/ No Hematoma Sites, Alessandra RT (R) 05:30 PM Rt Groin and rt wrist No bleeding/ No Hematoma Sites, Alessandra RT (R) 2cc of air removed from vasc band 05:45 PM Rt Groin and rt wrist No bleeding/ No Hematoma Sites, Alessandra RT (R) 2cc of air removed from vasc band 06:00 PM Rt Groin and rt wrist No bleeding/ No Hematoma 06:15 PM Rt Groin and rt wrist No bleeding/ No Hematoma Sites, Alessandra RT (R) Yes 2cc of air removed from vasc band 06:30 PM Rt Groin and rt wrist No bleeding/ No Hematoma Sites, Alessandra RT (R) Yes 2cc of air removed from vasc band 06:45 PM Rt Groin and rt wrist No bleeding/ No Hematoma Idania Amezquita RN Yes 2cc of air removed from vasc band 07:00 PM Rt Groin No bleeding/ No Hematoma Idania Amezquita RN Yes Pulses Time Site Pre-Procedure Post-Procedure Note 10/29/2017 2:19:00 PM Bilateral DP 1+ 10/29/2017 2:19:00 PM Bilateral radial 2+ 4:22:00 PM Bilateral DP & PT 1+ 10/29/2017 5:00:00 PM Bilateral DP & PT 1+ 10/29/2017 5:15:00 PM Bilateral DP & PT 1+ 10/29/2017 5:30:00 PM Bilateral DP & PT 1+ 10/29/2017 5:45:00 PM Bilateral DP & PT 1+ 10/29/2017 6:00:00 PM Bilateral DP & PT 1+ 10/29/2017 6:15:00 PM Bilateral DP & PT 1+ 10/29/2017 6:30:00 PM Bilateral DP & PT 1+ 10/29/2017 6:45:00 PM Bilateral DP & PT 1+ 10/29/2017 7:02:00 PM Bilateral DP & PT 1+ Updated by Alessandra Oneill RT (R) on 10/29/2017 7:44:53 PM Alessandra Oneill RT electronically signed on 10/29/2017 7:45:36 PM with status of Final
[2017-10-29] MEDS ORDERED: *HR* Atropine Sulfate 1 MG/10 ML SYRINGE ONE (21:13)
[2017-10-30] MEDS: *HR* Heparin 5,000 UNIT/ML VIAL SQ SCH (04:36)
[2017-10-30 07:40] VITALS: BP 126/74
--- NOTE | 2017-10-30 08:13 | Cardiology Progress Note ---
Date of Encounter: 10/30/17 Time of Encounter: 08:11 Assessment and Plan (1) CAD (coronary artery disease) Current Visit: Yes Status: Acute S/P C yesterday for chest pain and abnormal stress test. NAVDEEP to pLAD per preliminary report. Final cath report pending. Chest pain free overnight. DAPT (ASA and Plavix) uninterrupted x 1 year. Pt verbalizes understanding. Continue Statin. Will start BB. No events on tele. Right radial access site healing well. No bleeding, hematoma or ecchymosis noted. Right femoral access site mild ecchymosis, no bleeding or hematoma. TTE EF 60-65%. Normal LV chamber size, wall thickness and function. Mild left ventricular diastolic dysfunction. Normal right ventricular structure and function. Mild pulmonary hypertension. No significant valvular dysfunction. Check BMP and CBC. Cardiology signing off. Reconsult PRN. Will coordinate outpt follow-up in 3-4 weeks as outpt. Qualifiers: Coronary Disease-Associated Artery/Lesion type: [place] artery [place] vs. transplanted heart: [place] heart Associated angina: angina presence unspecified Qualified Code(s): I25.10 - Atherosclerotic heart disease of [place] coronary artery without angina pectoris (2) Chest pain Current Visit: Yes Status: Acute Symptoms concerning for unstable angina. Troponin negative x3. No ischemic ECG changes. Underwent 2 day stress test which demonstrated large sized, moderate to severe intensity, majority reversible perfusion defect involving the mid anterolateral , inferolateal, inferior, all apical, and apex segments suggests the presence of ischemia as well. TTE demonstrated preserved LVEF with normal wall motion. Risk factors for CAD include: HTN, HLD, obesity. LHC yesterday NAVDEEP to pLAD. ASA, Plavix, Statin, BB as above. Qualifiers: Chest pain type: chest pain due to myocardial ischemia Ischemic chest pain type: unstable angina pectoris Qualified Code(s): I20.0 - Unstable angina (3) Abnormal stress test Current Visit: Yes Status: Chronic As above. Discussion w patient/family: The assessment and plan as outlined above was discussed with the patient and/or family members who expressed understanding and agreement. All questions were answered. Thank you for involving us in the care of your patient. Please call with any questions. I will discuss all the above with Dr. Charles Mahmood and make changes as necessary. Subjective Principal diagnosis: CAD s/p PCI, abnormal stress test, chest pain Interval history: S/P LHC yesterday for abnormal stress test and chest pain. Reportedly S/P NAVDEEP to pLAD. Final cath report is pending. Pt denies chest pain overnight, denies dyspnea. Objective Vital Signs, Last 4 Hours Temp Pulse Resp BP Pulse Ox 10/30/17 07:37 98.2 F 82 15 126/74 95 10/30/17 04:29 97.9 F 94 18 135/84 93 Vital Signs Temp Pulse Pulse Resp BP Pulse Ox 10/30/17 07:37 98.2 F 82 15 126/74 95 10/30/17 04:29 97.9 F 94 18 135/84 93 10/30/17 01:00 90 108/76 95 10/30/17 00:00 90 130/78 95 10/29/17 23:30 94 123/77 95 10/29/17 23:08 97.7 F 93 18 112/77 92 10/29/17 23:00 91 128/80 97 10/29/17 22:45 88 133/81 96 10/29/17 22:30 87 131/85 95 10/29/17 22:15 86 135/67 92 10/29/17 22:00 88 134/85 10/29/17 21:55 87 111/96 10/29/17 21:52 88 88 120/68 10/29/17 21:45 87 87 105/57 10/29/17 21:40 99 99 130/114 10/29/17 21:35 107 107 149/102 10/29/17 21:15 90 90 160/101 10/29/17 19:52 97.6 F 85 18 157/87 92 Intake and Output 10/29/17 10/30/17 10/30/17 23:59 07:59 15:59 Output Total 100 / 100 200 / 200 Balance -100 / -100 -200 / -200 Output: Urine 100 / 100 200 / 200 Other: Weight 107.9 kg 109 kg Patient Weight 10/30/17 23:59 Weight 109 kg General: Conversant, No Apparent Distress HEENT: Atraumatic, Normocephaly, Mucus Membranes Moist Neck: No JVD, Normal carotid pulses Cardiac: Reg Rate and Rhythm, Normal S1 and S2, No Murmur Lungs: Normal Breath Sounds, No Wheeze, Rales, Rhonchi Neuro: Alert and responsive, No focal deficits noted Abdomen: Soft, Non-Tender Skin: Other (right radial access site healing well. No bleeding, hematoma or ecchymosis noted. Right femoral access site with mild ecchymosis. No bleeding or hematoma.) Results 10/29/17 04:40 10/29/17 04:40 - Imaging and Cardiology Stress Test: report reviewed Echo: report reviewed Cardiac cath: report reviewed - EKG Interpretation EKG results cardiology: other (12 hr tele AVG HR 90, SR, no significant pauses or arrhythmias.) Consult Discharge Plan - Plan Additional Instructions: RISK FACTORS: STOP SMOKING: If you smoke, STOP. Smoking or tobacco use significantly increases your risk of heart disease because nicotine causes the arteries to narrow or constrict. It also causes fats to stick to the artery. Your chances of having a heart attack are greatly increased if you continue to smoke. For more information, call the education line for smoking cessation 0-505-LAJCNWO EAT A LOW FAT/CHOLESTEROL/SODIUM DIET: This diet may help reduce your chances of having a heart attack. LIFTING: Avoid lifting anything more than 10 pounds for 5-7 days Prior to straining, laughing, sneezing and/or coughing, apply manual pressure directly over insertion site. ACTIVITY: You may walk or climb stairs as tolerated You can resume sexual activity as tolerated In general, you are encouraged to engage in a minimum of 30 minutes or more of moderate intensity physical activity, such as brisk walking, daily or at least 3 -4 times weekly BATHING Do not submerge the site into water (bath tub, hot tub, swimming pool) for 1 week. This can be a source for infection into the blood stream. You may shower after 24 hours SITE CARE: After 24 hours, you may remove the dressing and leave the site open to air. Keep the site clean and dry. Clean gently and pat dry. You can expect bruising and tenderness that gradually resolve within a week or two. Return to work as instructed per your physician Resume driving as instructed per physician Keep all scheduled follow up appointments Resume medications as instructed IMPORTANT: If prescribed a Platelet Aggregation Inhibitor such as, Plavix, Brilinta or Effient: Duration of therapy is minimum one year These medications are often used in combination with Aspirin in prevention of future heart attacks Never discontinue unless consult with your Die Attaching Machine Tender STROKE (CVA) Risk factors for a stroke are: Age, cigarette smoking, diabetes, excessive alcohol consumption, family history, high blood pressure, overweight, physical inactivity, prior stroke, heart attack, diagnosis of carotid artery stenosis or other artery disease. Warning signs: Sudden numbness or weakness of the face, arm or leg; especially on one side of the body, sudden confusion, trouble speaking or understanding, sudden trouble seeing in one or both eyes, sudden trouble walking, dizziness, loss of balance or coordination, sudden severe headache with no cause. Call 911 or go to the Emergency Room. CONGESTIVE HEART FAILURE: If you have been diagnosed with Congestive Heart Failure (CHF) and your symptoms return, make an appointment with your physician Weigh yourself daily. Notify your physician if you have a weight gain of two or more pounds in one day or five or more pounds in one week. If you experience any difficulty breathing, please call 911 BLEEDING: Although the risk of bleeding is minimal, it can happen. If you have any bleeding from the site, apply firm pressure above the puncture site for 10-15 minutes. If the bleeding does not stop, continue manual pressure and call 911 Contact your physician if: You develop a fever greater than 101 degrees Fahrenheit Your site becomes reddened or has any drainage You have an increase in pain or burning at the site or if a large knot forms at the site. If you experience chest pain, shortness of breath, dizziness, or extreme tiredness, stop the activity and rest. Please notify your physicians office if you experience any of these symptoms and they are not relieved by rest please call 911! Referrals: Adrienne Barnes, AUTO CLAIMS ADJUSTER [Primary Care Provider] -
[2017-10-30] MEDS: Aspirin 81 MG TAB.CHEW PO SCH (08:59)
--- NOTE | 2017-10-30 09:08 | Discharge Summary ---
<Sandor Clements - Last Filed: 10/30/17 09:16> - NOTES TO OUTPATIENT PROVIDER Notes to Outpatient Provider: Patient will require a follow-up appointment with cardiology outpatient in 3-4 weeks. Patient started on beta antonio and aspirin while in the hospital. Patient was already on Plavix. Orders not resulted at time of discharge: Pending orders 10/27/17 07:00 NM zach perf SPECT multi [NM] Routine 10/29/17 11:59 CL Cardiac Catheterization [CL] Routine 10/29/17 16:29 ECG 12 lead ECG [ECG] Stat 10/30/17 06:00 ECG 12 lead ECG [ECG] AM 0600 Date of Encounter: 10/30/17 Time of Encounter: 09:04 - Discharge Diagnosis (1) Chest pain Priority: Primary Status: Acute Qualifiers: Chest pain type: chest pain due to myocardial ischemia Ischemic chest pain type: unstable angina pectoris Qualified Code(s): I20.0 - Unstable angina (2) CAD (coronary artery disease) Priority: Primary Status: Acute Qualifiers: Coronary Disease-Associated Artery/Lesion type: [place] artery [place] vs. transplanted heart: [place] heart Associated angina: angina presence unspecified Qualified Code(s): I25.10 - Atherosclerotic heart disease of [place] coronary artery without angina pectoris Hospital course: Ms. Das is a 67 year old female with a past medical history of GERD, HLD and thyroid who initially presented to the emergency department on 10/26/17 for chest pain. Her initial workup was negative and the ED. Symptoms were concerning for unstable angina. She underwent 2 day stress test which demonstrated large size, moderate to severe intensity, majority reversible perfusion suggestive of presence of ischemia. TTE demonstrated preserved EF 60 % with normal wall motion. Patient underwent LHC with possible PCI in which she underwent NAVDEEP to pLAD. Symptoms have improved since then and patient states she is feeling much better. Cardiology will coordinate outpatient follow -up in 3-4 weeks. Continue on aspirin, Plavix, statin and beta antonio. Discharge discussed with: patient Time spent discussing smoking cessation with patient: 3 to 10 minutes - Time Spent with Patient Total time spent providing and/or coordinating discharge services: - Discharge Medications Prescriptions: Aspirin 81 mg PO DAILY #30 Metoprolol [Lopressor] 25 mg PO BID #60 tablet Home Medications: Clopidogrel [Plavix] 75 mg PO DAILY 10/26/17 [History] Levothyroxine Sodium [Levoxyl] 88 mcg PO DAILY 10/26/17 [History] Omeprazole [PriLOSEC] 20 mg PO BIDAC 10/26/17 [History] Rosuvastatin Calcium [Crestor] 5 mg PO DAILY 10/26/17 [History] Aspirin 81 mg PO DAILY #30 10/30/17 [Rx] Metoprolol [Lopressor] 25 mg PO BID #60 tablet 10/30/17 [Rx] Allergies/Adverse Reactions: 3 Allergy/AdvReac Type Severity Reaction Status Date / Time Penicillins [PCN] Allergy See Verified 10/26/17 10:55 Comments Date of admission: 10/26/17 14:16 Primary care physician: Adrienne Barnes CNP Consults: 10/28/17 15:23 Consult to Cardiology [CONS] Routine Comment: Consulting Provider: Cardiology [place] Reason for Consult: abnormal stress test Call Completed: Yes 10/29/17 16:29 Consult to Cardiac Rehabilitation-Phase1 [CONS] Routine Comment: Reason for Consult: post op PCI Call Completed: Yes Discharging clinician: David De Souza Anticipated date of discharge: 10/30/17 - Constitutional Vitals: Temp Pulse Resp BP Pulse Ox 98.2 F 82 15 126/74 95 10/30/17 07:37 10/30/17 07:37 10/30/17 07:37 10/30/17 07:37 10/30/17 07:37 General appearance: Present: cooperative, A&O X 3, morbidly obese, no acute distress, answers questions appropriately - Head Head exam: Present: atraumatic, normal inspection - Eye Eye exam: Present: normal appearance, PERRL - Neck Neck exam general surgery: Present: normal inspection - Respiratory Respiratory exam: Present: CTAB. Absent: rales, respiratory distress, wheezes - Cardiovascular Cardiovascular exam: Present: RRR, +S1, +S2 - GI/Abdominal GI/Abdominal exam: Present: normal bowel sounds, soft, no peritoneal signs. Absent: tenderness - Extremities Exam Extremities exam: Present: normal capillary refill, normal inspection, warm. Absent: pedal edema, tenderness Additional comments: Patient has a healing wound in her right inguinal crease status post [facility] - Back Exam Back exam: Present: normal inspection - Neurological Exam Neurological exam: Present: alert, normal gait, oriented X3, no focal deficits - Psychiatric Psychiatric exam: Present: normal affect, normal mood - Skin Skin exam: Present: intact, normal color, warm - Patient Status Disposition: Home, Self-Care Condition: Good Functional capacity at discharge: independent ambulation Overall status at discharge: patient is back to baseline - Discharge Instructions Instructions: Chest Pain (DC), Left Heart Catheterization (DC) Follow Up With: Adrienne Barnes, EVAPORATOR [Primary Care Provider] - Additional Instructions: RISK FACTORS: STOP SMOKING: If you smoke, STOP. Smoking or tobacco use significantly increases your risk of heart disease because nicotine causes the arteries to narrow or constrict. It also causes fats to stick to the artery. Your chances of having a heart attack are greatly increased if you continue to smoke. For more information, call the education line for smoking cessation 6-315-LRGUGFX EAT A LOW FAT/CHOLESTEROL/SODIUM DIET: This diet may help reduce your chances of having a heart attack. LIFTING: Avoid lifting anything more than 10 pounds for 5-7 days Prior to straining, laughing, sneezing and/or coughing, apply manual pressure directly over insertion site. ACTIVITY: You may walk or climb stairs as tolerated You can resume sexual activity as tolerated In general, you are encouraged to engage in a minimum of 30 minutes or more of moderate intensity physical activity, such as brisk walking, daily or at least 3 -4 times weekly BATHING Do not submerge the site into water (bath tub, hot tub, swimming pool) for 1 week. This can be a source for infection into the blood stream. You may shower after 24 hours SITE CARE: After 24 hours, you may remove the dressing and leave the site open to air. Keep the site clean and dry. Clean gently and pat dry. You can expect bruising and tenderness that gradually resolve within a week or two. Return to work as instructed per your physician Resume driving as instructed per physician Keep all scheduled follow up appointments Resume medications as instructed IMPORTANT: If prescribed a Platelet Aggregation Inhibitor such as, Plavix, Brilinta or Effient: Duration of therapy is minimum one year These medications are often used in combination with Aspirin in prevention of future heart attacks Never discontinue unless consult with your Gas Plant Technician STROKE (CVA) Risk factors for a stroke are: Age, cigarette smoking, diabetes, excessive alcohol consumption, family history, high blood pressure, overweight, physical inactivity, prior stroke, heart attack, diagnosis of carotid artery stenosis or other artery disease. Warning signs: Sudden numbness or weakness of the face, arm or leg; especially on one side of the body, sudden confusion, trouble speaking or understanding, sudden trouble seeing in one or both eyes, sudden trouble walking, dizziness, loss of balance or coordination, sudden severe headache with no cause. Call 911 or go to the Emergency Room. CONGESTIVE HEART FAILURE: If you have been diagnosed with Congestive Heart Failure (CHF) and your symptoms return, make an appointment with your physician Weigh yourself daily. Notify your physician if you have a weight gain of two or more pounds in one day or five or more pounds in one week. If you experience any difficulty breathing, please call 911 BLEEDING: Although the risk of bleeding is minimal, it can happen. If you have any bleeding from the site, apply firm pressure above the puncture site for 10-15 minutes. If the bleeding does not stop, continue manual pressure and call 911 Contact your physician if: You develop a fever greater than 101 degrees Fahrenheit Your site becomes reddened or has any drainage You have an increase in pain or burning at the site or if a large knot forms at the site. If you experience chest pain, shortness of breath, dizziness, or extreme tiredness, stop the activity and rest. Please notify your physicians office if you experience any of these symptoms and they are not relieved by rest please call 911! - Diet and Activity Activity: increase activity as tolerated Diet: advance to your usual diet <David De Souza - Last Filed: 10/30/17 17:38> Orders not resulted at time of discharge: Pending orders 10/27/17 07:00 NM zach perf SPECT multi [NM] Routine 10/29/17 11:59 CL Cardiac Catheterization [CL] Routine 10/29/17 16:29 ECG 12 lead ECG [ECG] Stat 10/30/17 06:00 ECG 12 lead ECG [ECG] AM 0600 Date of Encounter: 10/30/17 Hospital course: Ms. Das is a 67 year old female - Time Spent with Patient Total time spent providing and/or coordinating discharge services: Date of admission: 10/26/17 14:16 Primary care physician: Adrienne Barnes CNP Consults: 10/28/17 15:23 Consult to Cardiology [CONS] Routine Comment: Consulting Provider: Cardiology [place] Reason for Consult: abnormal stress test Call Completed: Yes 10/29/17 16:29 Consult to Cardiac Rehabilitation-Phase1 [CONS] Routine Comment: Reason for Consult: post op PCI Call Completed: Yes - Constitutional Vitals: Temp Pulse Resp BP Pulse Ox 98.2 F 82 15 126/74 95 10/30/17 07:37 10/30/17 07:37 10/30/17 07:37 10/30/17 07:37 10/30/17 07:37 - Attending Attestation I examined this patient and my medical decision-making was reviewed with the Resident Physician. I agree with the documented findings, disposition and treatment plan as described except to the extent set forth below.
--- NOTE | 2017-11-01 19:17 | Electrocardiograph Report ---
[place] [id number] Test Date: 2017-10-30 Pat Name: Jackie Das Department: 110 Room: 2N11 Gender: F Clinical Secretary: MENG : [id number] Requested By: Elliot Hood Order Number: [id number] Reading MD: Elliot Hood MD Measurements Intervals [place] Rate: 87 P: 31 UT: 178 QRS: 67 QRSD: 85 T: 48 QT: 352 QTc: 396 Interpretive Statements SINUS RHYTHM LOW QRS VOLTAGE IN PRECORDIAL LEADS Electronically Signed On 11-01-2017 19:15:51 EDT by Elliot Hood MD
== END 2017-10-30 10:13 | disposition home or self-care (01) ==
LOC: EMEROO 10:45 → 3BNU 10:45 → 2NNU 10-29 19:36
PROVIDERS: ADMIT Family Medicine; ATTEND Registered Nurse

== ENCOUNTER 2022-06-15 14:22 | Observation (INO) ==
[2022-06-15] MEDS ORDERED: Ondansetron 4 MG/2 ML VIAL IVP ONE (16:31)
[2022-06-15] MEDS ORDERED: Ketorolac 30 MG/ML VIAL IVP ONE (16:31)
[2022-06-15 16:32] LABS: Bilirubin,Urine Negative (Negative); Blood,Urine Negative (Negative); Clarity,Urine Clear (Clear); Color,Urine Yellow (Yellow); Glucose,Urine (UA) Normal (Normal); Hyaline Casts,Urine Few per lpf (None Seen); Ketones,Urine 40 mg/dL (Negative); Leukocyte Esterase,Urine Negative (Negative); Mucus,Urine Many per lpf (None-Few); Nitrite,Urine Negative (Negative); Protein,Urine 50 mg/dL (Neg-Trace); RBC,Urine 0-3 per hpf (0-3); Specific Gravity,Urine > 1.030 (1.010-1.025); Squamous Epithelial Cell,Urine Moderate per hpf (None-Few); WBC,Urine 0-3 per hpf (0-3)
[2022-06-15 16:50] LABS: Basophils # 0.1 K/mcL (0.0-0.2); Basophils % 0.8 %; Eosinophils # 0.1 K/mcL (0.0-0.6); Eosinophils % 0.8 %; Hematocrit 41.1 % (35.3-44.9); Hemoglobin 13.2 g/dL (11.5-15.4); Immature Granulocytes % 0.6 % (0-4); Lymphocytes # 3.4 K/mcL (0.6-4.6); Lymphocytes % 20.2 %; Mean Corpuscular HGB Conc 32.1 g/dL (31.6-35.5); Mean Corpuscular Hemoglobin 28.3 pg (28.0-33.3); Mean Corpuscular Volume 88.2 fL (83.0-100.0); Mean Platelet Volume 10.7 fL (9.4-12.4); Monocytes # 1.1 K/mcL (0.0-1.3); Monocytes % 6.5 %; Neutrophils # 11.9 K/mcL (1.6-8.9); Platelet Count 415 K/mcL (140-400); Red Blood Count 4.66 M/mcL (3.82-4.97); Red Cell Distribution Width 14.9 % (11.5-14.5); Segmented Neutrophils % 71.1 %; White Blood Count 16.7 K/mcL (4.3-11.1)
[2022-06-15 17:08] LABS: Albumin 3.9 g/dL (3.5-5.7); Albumin/Globulin Ratio 1.1 (1.1-2.2); Bilirubin,Direct 0.1 mg/dL (0.0-0.2); Bilirubin,Indirect 0.6 mg/dL (0.0-1.0); Bilirubin,Total 0.7 mg/dL (0.3-1.0); Calcium 9.1 mg/dL (8.6-10.3); Globulin 3.5 g/dL (2.4-3.5); Total Protein 7.4 g/dL (6.4-8.9)
[2022-06-15] MEDS ORDERED: *HR* FentaNYL (PF) 100 MCG/2 ML VIAL IVP ONE (18:53)
[2022-06-15] MEDS ORDERED: Morphine Sulfate 2 MG/ML SYRINGE IVP ONE (19:36)
[2022-06-15] MEDS ORDERED: levoFLOXacin 750 MG/150 ML 750 MG/150 ML BAG IVPB ONE (21:20)
[2022-06-15] MEDS ORDERED: Naloxone 0.4 MG/ML INJ IVP PRN (22:11)
[2022-06-15] MEDS ORDERED: Ondansetron 4 MG/2 ML VIAL IVP PRN (22:11)
[2022-06-15] MEDS ORDERED: Melatonin 3 MG TABLET PO PRN (22:11)
[2022-06-15] MEDS ORDERED: *HR* OxyCODONE/APAP 5/325 TABLET PO PRN (22:17)
[2022-06-15] MEDS: Ringers Solution, Lactated 1,000 ML IVC SCH (23:59)
[2022-06-16] MEDS: Cefepime HCl 2,000 MG in 0.9 % Sodium Chloride 10 ML IVP SCH ×2 (06:14→07:48)
[2022-06-16] MEDS ORDERED: Acetaminophen IV 1,000 MG/100 ML BAG IVPB ONE (06:17)
[2022-06-16] MEDS: MetroNIDAZOLE 500 MG/100 ML 500 MG/100 ML BAG IVPB SCH ×4 (06:29→23:17)
[2022-06-16 06:47] LABS: Basophils # 0.1 K/mcL (0.0-0.2); Basophils % 0.7 %; Eosinophils # 0.2 K/mcL (0.0-0.6); Hematocrit 35.8 % (35.3-44.9); Immature Granulocytes % 0.7 % (0-4); Lymphocytes # 2.7 K/mcL (0.6-4.6); Lymphocytes % 21.6 %; Mean Corpuscular HGB Conc 31.6 g/dL (31.6-35.5); Mean Corpuscular Hemoglobin 28.4 pg (28.0-33.3); Mean Corpuscular Volume 89.9 fL (83.0-100.0); Mean Platelet Volume 10.8 fL (9.4-12.4); Monocytes # 1.1 K/mcL (0.0-1.3); Monocytes % 9.1 %; Neutrophils # 8.1 K/mcL (1.6-8.9); Platelet Count 339 K/mcL (140-400); Red Blood Count 3.98 M/mcL (3.82-4.97); Red Cell Distribution Width 14.8 % (11.5-14.5); Segmented Neutrophils % 65.9 %; White Blood Count 12.3 K/mcL (4.3-11.1)
[2022-06-16 06:48] LABS: Hemoglobin 11.3 g/dL (11.5-15.4)
[2022-06-16 07:07] LABS: Albumin 3.5 g/dL (3.5-5.7); Albumin/Globulin Ratio 1.1 (1.1-2.2); Bilirubin,Total 0.7 mg/dL (0.3-1.0); Calcium 8.7 mg/dL (8.6-10.3); Globulin 3.2 g/dL (2.4-3.5); Magnesium 1.9 mg/dL (1.6-2.6); Potassium 3.9 mEq/L (3.5-5.1); Total Protein 6.7 g/dL (6.4-8.9)
[2022-06-16] MEDS: Ringers Solution, Lactated 1,000 ML IVC SCH (10:22)
[2022-06-16] MEDS ORDERED: *HR* Dextrose 50 % in Water (Syg) 50 ML SYRINGE IVP ONE (17:39)
[2022-06-16] MEDS: *HR* OxyCODONE/APAP 10/325 TABLET PO PRN (17:51)
[2022-06-16] MEDS ORDERED: Ondansetron 4 MG/2 ML VIAL IVP PRN (19:04)
[2022-06-16] MEDS ORDERED: Albuterol 2.5 MG/3 ML NEBULIZER IH PRN (19:04)
[2022-06-16] MEDS ORDERED: *HR* Propofol 200 MG/20 ML VIAL IVP ONE (19:10)
[2022-06-16] MEDS ORDERED: Lidocaine -MPF 4% 5 ML AMPUL ONE (19:10)
[2022-06-16] MEDS ORDERED: *HR* Succinylcholine 200 MG/10 ML VIAL IVP ONE (19:10)
[2022-06-16] MEDS ORDERED: *HR* Metoprolol 5 MG/5 ML VIAL IVP ONE (20:23)
[2022-06-16] MEDS ORDERED: *HR* FentaNYL (PF) 100 MCG/2 ML VIAL ONE (20:29)
[2022-06-16] MEDS ORDERED: *HR* Magnesium Sulfate 1 GM/2 ML VIAL ONE (20:37)
[2022-06-16] MEDS: *HR* FentaNYL (PF) 100 MCG/2 ML VIAL IVP PRN ×2 (21:44→21:54)
[2022-06-16] MEDS ORDERED: MetroNIDAZOLE 500 MG/100 ML 500 MG/100 ML BAG IVPB SCH (22:14)
[2022-06-17] MEDS: *HR* OxyCODONE/APAP 10/325 TABLET PO PRN (00:59)
[2022-06-17] MEDS: MetroNIDAZOLE 500 MG/100 ML 500 MG/100 ML BAG IVPB SCH (06:06)
[2022-06-17] MEDS ORDERED: Naloxone 0.4 MG/ML INJ IVP PRN (07:13)
[2022-06-17] MEDS ORDERED: Melatonin 3 MG TABLET PO PRN (07:13)
[2022-06-17] MEDS ORDERED: *HR* OxyCODONE/APAP 10/325 TABLET PO PRN (07:13)
[2022-06-17] MEDS ORDERED: Ondansetron 4 MG/2 ML VIAL IVP PRN (07:13)
[2022-06-17] MEDS ORDERED: *HR* OxyCODONE/APAP 5/325 TABLET PO PRN (07:13)
[2022-06-17] MEDS ORDERED: Cefepime HCl 2,000 MG in 0.9 % Sodium Chloride 10 ML IVP SCH ×2 (08:00)
[2022-06-17] MEDS ORDERED: Sennosides/Docusate Sodium TABLET PO PRN (10:05)
[2022-06-17 11:14] VITALS: BP 121/56; PULSE 69; TEMP 98.7; O2SAT 95
[2022-06-17] MEDS ORDERED: MetroNIDAZOLE 500 MG/100 ML 500 MG/100 ML BAG IVPB SCH (14:30)
== END 2022-06-17 13:54 | disposition home or self-care (01) ==
LOC: EMEROOARM 14:22 → 2ANU 14:22 → SUATTDRO 22:20 → 2ANU 22:57
PROVIDERS: ADMIT Internal Medicine; ATTEND Internal Medicine